=== PATIENT | male | born 1950 | race African-American/Black ===

== ENCOUNTER 2016-05-28 09:49 | Emergency (ER) | payer MEDICARE, OTHER ==
--- NOTE | 2016-05-28 11:37 | PICIS ---
[facility] EMERGENCY RECORD TRIAGE (SatMay 28, 2016 10:04 SFRE) TRIAGE NOTES: PAIN TO RIGHT TOES. (SatMay 28, 2016 10:04 SFRE) PATIENT: NAME: Eros Figueroa, AGE: 65, GENDER: male, : Sat1950, TIME OF GREET: SatMay 28, 2016 09:50, PREFERRED LANGUAGE: Upper Sorbian, ETHNICITY: Not or , FALL RISK: NO, ECODE BILLING MAP: [facility], SSN: [id number], Zip Code: [address], KG WEIGHT: 64.86, PHONE: , , , PERSON ID: [id number], PCP: SHONNA. (SatMay 28, 2016 10:04 SFRE) COMPLAINT: FOOT PAIN. (SatMay 28, 2016 10:04 SFRE) ADMISSION: URGENCY: 5 Fast Track, ADMISSION SOURCE: Home, TRANSPORT: Walk-in, BED: ED [facility]. (SatMay 28, 2016 10:04 SFRE) PROVIDERS: TRIAGE NURSE: Rosa Borges RN. (SatMay 28, 2016 10:04 SFRE) VITAL SIGNS: BP 148/81, Pulse 64, Resp 18, Temp 98.3, (Tympanic), Pain 9, (Sharp), O2 Sat 99, on Room Air, Time 05/28/2016 10:03. (10:03 SFRE) PREVIOUS VISIT ALLERGIES: NKDA. (SatMay 28, 2016 10:04 SFRE) NKDA. (10:05 SFRE) KNOWN ALLERGIES NKDA No Known Allergies (Unconfirmed) CURRENT MEDICATIONS (10:04 SFRE) None VITAL SIGNS (10:03 SFRE) VITAL SIGNS: BP: 148/81, Pulse: 64, Resp: 18, Temp: 98.3 (Tympanic), Pain: 9 (Sharp), O2 sat: 99 on Room Air, Time: 05/28/2016 10:03. NURSING PROCEDURE: DISCHARGE NOTE (11:25 MDEB) DISCHARGE: Patient discharged to home, ambulating without assistance, driving self, unaccompanied, Summary of Care printed/ provided, Patient requested and was provided an electronic copy of Discharge Instructions, Transition record given to patient, Above person(s) verbalized understanding of discharge instructions and follow-up care, Patient treated and evaluated by physician. BELONGINGS: Belongings remain with patient, Valuables remain with patient. NOTES: Emotional support needed and given, Patient tolerated procedure well. HPI FOOT (10:57 DHAM) CHIEF COMPLAINT: Patient presents for evaluation of pain, to the right foot. HISTORIAN: History provided by patient, Pain between the right 4th and 5th toes for 6 months. MECHANISM OF INJURY: Unknown mechanism. &a-1R&a+25V*p+0X*r2839P*c202B*c15G*c2P*p-0X&a-25V&a+1R Name: Eros Figueroa : 1950 M65 MedRec: [id number] AcctNum: [id number] Prepared: SatMay 28, 2016 15:36 by Interface Page 1 of 3 pMD [facility] EMERGENCY RECORD LOCATION: Symptoms are localized, most severe in the fifth toe. QUALITY: Pain is dull in nature, described as aching. SEVERITY: Current severity of pain rated as 9/10. TIME COURSE: Gradual onset of symptoms, 6, months ago. ASSOCIATED WITH: No associated symptoms. EXACERBATED BY: Patient's condition exacerbated by walking. RELIEVED BY: Patient's condition relieved by rest. ROS (10:59 DHAM) CONSTITUTIONAL: Historian denies chills, denies fever. MUSCULOSKELETAL: only pain is between right 4th and 5th toes. SKIN: Historian denies pruritis, denies rash, reports skin lesions. NEUROLOGIC: Negative neurologic review of systems. ENDOCRINE: Historian denies polydipsia, denies polyuria. HEMO/LYMPHATIC: Historian denies abnormal blood clotting, denies anemia, denies easy bruising. ALLERGIC/IMMUNOLOGIC: Historian denies frequent infections, denies hives. PAST MEDICAL HISTORY MEDICAL HISTORY: Past medical history includes history of hypertension. verefied 12/16/15. (10:05 SFRE) MALE SURGICAL HISTORY: L EAR DRUM REPAIR. verefied 12/16/15. (10:05 SFRE) SOCIAL HISTORY: Patient drinks every day, less than 5 drinks per day, Patient denies drug use, Patient currently uses tobacco, smokes cigarettes, daily, Patient smokes 1 pack per day, Lives at home, alone. verefied 12/16/15. (10:05 SFRE) NOTES: HAVE EXAMINED AND AGREE WITH PMHX, SOCIAL HX AND PAST FAMILY HX as noted in nursing docuentation. (11:00 DHAM) PHYSICAL EXAM (11:00 DHAM) CONSTITUTIONAL: Vital Signs Reviewed, Patient afebrile, Pulse normal, Blood pressure normal, Respiratory rate normal, Patient appears non toxic, Patient appears, in mild pain distress, Patient alert and oriented to person, place and time, Nursing notes reviewed. LOWER EXTREMITY: Pt noted to have normal pulses at the DP bilat. normal cap refill on all toes. He walks with a hint of a limp on the right foot. normal sensation to light touch. He has a typical corn on the medial right 5th toe. no swelling, warmth or redness. NEURO: [place] coma scale 15, Neuro exam findings include patient oriented to person, place and time, Speech normal, Gait normal, Memory normal, Cranial nerves intact, Deep tendon reflexes normal, Focal motor deficits include, Focal sensory deficits include. &a-1R&a+25V*p+0X*j8491K*c202B*c15G*c2P*p-0X&a-25V&a+1R Name: Eros Figueroa : 1950 M65 MedRec: [id number] AcctNum: [id number] Prepared: SatMay 28, 2016 15:36 by Interface Page 2 of 3 pMD [facility] EMERGENCY RECORD SKIN: Skin exam included findings of skin warm, dry, and normal in color, no rash, see LE above. LYMPHATIC: Lymphatic exam normal. PSYCHIATRIC: Psychiatric exam normal. EVENTS TRANSFER: Triage to Emergency Main ED -[facility]. (10:04 SFRE) Removed from Emergency Main ED -[facility]. (11:28 MDEB) O2SAT INTERPRETATION (11:03 DHAM) O2SAT: Single pulse oximetry, Oxygen saturation 99%, on room air, Oxygen saturation interpretation: Normal, No intervention required. PROBLEM LIST No recorded problems DIAGNOSIS (11:07 DHAM) FINAL: PRIMARY: corn right 5th toe not infected. DISPOSITION PATIENT: Disposition Type: Discharge, Disposition: *Discharge Home. (11:07 DHAM) Patient left the department. (11:28 BRIANNA) INSTRUCTION (11:13 [facility]) DISCHARGE: ABRASION. SPECIAL: Dorsey pad between 4th and 5th toes as demonstrated; Return for sign or symptom of infection or any other concerns. PRESCRIPTION No recorded prescriptions IMAGING *DISCHARGE INSTRUCTIONS RECEIPT: Image captured from scanner. (11:26 BRIANNA) *SUPPLY CHARGE SHEET: Image captured from scanner. (11:27 BRIANNA) ADMIN (15:29 [facility]) DIGITAL SIGNATURE: MD Tapia Darren. Holden: CHRIS=MD Tapia Darren MDEB=FRANCA Ireland, Carmen ZARCOE=FRANCA Borges, Rosa &a-1R&a+25V*p+0X*x9255Y*c202B*c15G*c2P*p-0X&a-25V&a+1R Name: Eros Figueroa : 1950 M65 MedRec: [id number] AcctNum: [id number] Prepared: SatMay 28, 2016 15:36 by Interface Page 3 of 3 pMD MTDD
--- NOTE | 2016-05-28 11:43 | ERRECORD ---
[facility] EMERGENCY RECORD HPI FOOT (10:57 DHAM) CHIEF COMPLAINT: Patient presents for evaluation of pain, to the right foot. HISTORIAN: History provided by patient, Pain between the right 4th and 5th toes for 6 months. MECHANISM OF INJURY: Unknown mechanism. LOCATION: Symptoms are localized, most severe in the fifth toe. QUALITY: Pain is dull in nature, described as aching. SEVERITY: Current severity of pain rated as 9/10. TIME COURSE: Gradual onset of symptoms, 6, months ago. ASSOCIATED WITH: No associated symptoms. EXACERBATED BY: Patient's condition exacerbated by walking. RELIEVED BY: Patient's condition relieved by rest. ROS (10:59 DHAM) CONSTITUTIONAL: Historian denies chills, denies fever. MUSCULOSKELETAL: only pain is between right 4th and 5th toes. SKIN: Historian denies pruritis, denies rash, reports skin lesions. NEUROLOGIC: Negative neurologic review of systems. ENDOCRINE: Historian denies polydipsia, denies polyuria. HEMO/LYMPHATIC: Historian denies abnormal blood clotting, denies anemia, denies easy bruising. ALLERGIC/IMMUNOLOGIC: Historian denies frequent infections, denies hives. PAST MEDICAL HISTORY MEDICAL HISTORY: Past medical history includes history of hypertension. verefied 12/16/15. (10:05 SFRE) MALE SURGICAL HISTORY: L EAR DRUM REPAIR. verefied 12/16/15. (10:05 SFRE) SOCIAL HISTORY: Patient drinks every day, less than 5 drinks per day, Patient denies drug use, Patient currently uses tobacco, smokes cigarettes, daily, Patient smokes 1 pack per day, Lives at home, alone. verefied 12/16/15. (10:05 SFRE) NOTES: HAVE EXAMINED AND AGREE WITH PMHX, SOCIAL HX AND PAST FAMILY HX as noted in nursing docuentation. (11:00 DHAM) KNOWN ALLERGIES NKDA No Known Allergies (Unconfirmed) CURRENT MEDICATIONS (10:04 SFRE) None VITAL SIGNS (10:03 SFRE) VITAL SIGNS: BP: 148/81, Pulse: 64, Resp: 18, Temp: 98.3 (Tympanic), Pain: 9 (Sharp), O2 sat: 99 on Room Air, Time: 05/28/2016 10:03. &a-1R&a+25V*p+0X*r9403K*c202B*c15G*c2P*p-0X&a-25V&a+1R Name: Eros Figueroa : 1950 M65 MedRec: [id number] AcctNum: [id number] Prepared: SatMay 28, 2016 11:34 by Interface Page 1 of 2 pMD [facility] EMERGENCY RECORD PHYSICAL EXAM (11:00 [facility]) CONSTITUTIONAL: Vital Signs Reviewed, Patient afebrile, Pulse normal, Blood pressure normal, Respiratory rate normal, Patient appears non toxic, Patient appears, in mild pain distress, Patient alert and oriented to person, place and time, Nursing notes reviewed. LOWER EXTREMITY: Pt noted to have normal pulses at the DP bilat. normal cap refill on all toes. He walks with a hint of a limp on the right foot. normal sensation to light touch. He has a typical corn on the medial right 5th toe. no swelling, warmth or redness. NEURO: [place] coma scale 15, Neuro exam findings include patient oriented to person, place and time, Speech normal, Gait normal, Memory normal, Cranial nerves intact, Deep tendon reflexes normal, Focal motor deficits include, Focal sensory deficits include. SKIN: Skin exam included findings of skin warm, dry, and normal in color, no rash, see LE above. LYMPHATIC: Lymphatic exam normal. PSYCHIATRIC: Psychiatric exam normal. PROBLEM LIST No recorded problems DIAGNOSIS (11:07 [facility]) FINAL: PRIMARY: corn right 5th toe not infected. PRESCRIPTION No recorded prescriptions DISPOSITION PATIENT: Disposition Type: Discharge, Disposition: *Discharge Home. (11:07 [facility]) Patient left the department. (11:28 MDEB) Holden: CHRIS=MD Willie, Raul BURCIAGAEB=FRANCA Ireland, Carmen AYALA=FRANCA Borges, Rosa &a-1R&a+25V*p+0X*a3803Z*c202B*c15G*c2P*p-0X&a-25V&a+1R Name: Eros Figueroa : 1950 M65 MedRec: [id number] AcctNum: [id number] Prepared: SatMay 28, 2016 11:34 by Interface Page 2 of 2 pMD [facility]
== END 2016-05-28 11:24 | disposition home or self-care (01) ==
LOC: MADERS 09:49
DX: L84 Corns and callosities (principal); I10 Essential (primary) hypertension; F17.210 Nicotine dependence, cigarettes, uncomplicated
CPT/HCPCS: 99283